=== PATIENT | male | born 1985 | race Hispanic/Latino ===

== ENCOUNTER 2017-05-07 12:43 | Inpatient (IN) | payer MEDICAID ==
[2017-05-07 12:48] VITALS: O2SAT 99
--- NOTE | 2017-05-07 13:24 | ED PDOC ---
HPI: Chest Pain Time Seen by Provider: 05/07/17 12:57 Chief Complaint (Nursing): Chest Pain Chief Complaint (Provider): Chest Pain History Per: Patient History/Exam Limitations: no limitations Onset/Duration Of Symptoms: Days (x 1.5 weeks) Current Symptoms Are (Timing): Still Present Additional Complaint(s): Eddi is a 32 y/o male with no past medical history, presenting to the ED complaining of chest pain for 1.5 weeks, which radiates to both arms. Has also been feeling anxious and depressed. Patient was admitted at hospital in [place], [place] for chest pain and diagnosed with depression and anxiety. Denies alcohol and drug use. Also denies suicidal and homicidal ideation. PMD: None Past Medical History Reviewed: Historical Data, Nursing Documentation, Vital Signs Vital Signs: Last Vital Signs Temp 97.7 F 05/07/17 12:45 Pulse 90 05/07/17 13:16 Resp 16 05/07/17 12:45 BP 126/76 05/07/17 12:45 Pulse Ox 99 05/07/17 13:58 - Medical History PMH: Anxiety, Depression - Family History Family History: States: Unknown Family Hx - Social History Current smoker - smoking cessation education provided: Yes Alcohol: None Drugs: Denies - Allergies Allergies/Adverse Reactions: Allergies Allergy/AdvReac Type Severity Reaction Status Date / Time No Known Allergies Allergy Verified 05/07/17 12:45 Review of Systems ROS Statement: Except As Marked, All Systems Reviewed And Found Negative Constitutional: Negative for: Fever, Chills Cardiovascular: Positive for: Chest Pain (radiating to both arms) Psych: Positive for: Anxiety, Depression. Negative for: Suicidal ideation (and homicidal) Physical Exam - Reviewed Nursing Documentation Reviewed: Yes Vital Signs Reviewed: Yes - Physical Exam Appears: Positive for: Non-toxic, No Acute Distress Head Exam: Positive for: ATRAUMATIC, NORMAL INSPECTION, NORMOCEPHALIC Skin: Positive for: Normal Color, Warm, Dry Eye Exam: Positive for: EOMI, Normal appearance, PERRL Neck: Positive for: Normal, Painless ROM, Supple Cardiovascular/Chest: Positive for: Regular Rate, Rhythm. Negative for: Murmur Respiratory: Positive for: Normal Breath Sounds. Negative for: Accessory Muscle Use, Respiratory Distress Back: Positive for: Normal Inspection. Negative for: Vertebral Tenderness Extremity: Positive for: Normal ROM. Negative for: Pedal Edema, Deformity Neurologic/Psych: Positive for: Alert, Oriented. Negative for: Motor/Sensory Deficits - Laboratory Results Result Diagrams: 05/07/17 13:36 05/07/17 13:36 - ECG O2 Sat by Pulse Oximetry: 99 (RA) Pulse Ox Interpretation: Normal Medical Decision Making Medical Decision Making: Time: 13:15 Initial Plan: --Troponin I --Urine drug screen --EKG --CXR 2 views --Pending reevaluation Time: 13:32 FINDINGS: LUNGS: No active pulmonary disease. PLEURA: No significant pleural effusion identified. No pneumothorax apparent. CARDIOVASCULAR: Normal. OSSEOUS STRUCTURES: No significant abnormalities. VISUALIZED UPPER ABDOMEN: Normal. OTHER FINDINGS: None. IMPRESSION: No active disease. Time: 13:41 --Added urine dipstick, CBC, CMP, and alcohol serum Time: 13:48 --Patient placed on 1:1 observation for suicide precaution --Will be admitted inpatient to Adult Psychiatry for depression, under the care of Dr. Brian Cope --Patient medically stable for psychiatric admission Scribe Attestation: Documented by Maxine Alas, acting as a scribe for Aly Storm MD Provider Scribe Attestation: All medical record entries made by the Scribe were at my direction and personally dictated by me. I have reviewed the chart and agree that the record accurately reflects my personal performance of the history, physical exam, medical decision making, and the department course for this patient. I have also personally directed, reviewed, and agree with the discharge instructions and disposition. Disposition - Clinical Impression Clinical Impression: Depression - Patient ED Disposition Is Patient to be Admitted: Yes - Disposition Disposition Time: 13:46 Condition: FAIR - Pt Status Changed To: Hospital Disposition Of: Inpatient - Admit Certification Admit to Inpatient:: After my assessment, the patient will require hospitalization for at least two midnights. This is because of the severity of symptoms shown, intensity of services needed, and/or the medical risk in this patient being treated as an outpatient. - POA Present On Arrival: None
--- NOTE | 2017-05-07 13:34 | RAD ---
HISTORY: Chest pain COMPARISON: No prior. TECHNIQUE: Chest PA and lateral FINDINGS: LUNGS: No active pulmonary disease. PLEURA: No significant pleural effusion identified. No pneumothorax apparent. CARDIOVASCULAR: Normal. OSSEOUS STRUCTURES: No significant abnormalities. VISUALIZED UPPER ABDOMEN: Normal. OTHER FINDINGS: None. IMPRESSION: No active disease.
[2017-05-07 14:09] LABS: BASO % 0.5 % (0.0-2.0); EOS % 0.1 % (0.0-4.0); HEMATOCRIT 48.7 % (35.0-51.0); LYMPH # 1.7 K/uL (1.0-4.3); LYMPH % 20.8 % (20.0-40.0); MEAN CELL VOLUME 89.4 fl (80.0-94.0); MEAN CORPUSCULAR HEMOGLOBIN 31.2 pg (27.0-31.0); MEAN CORPUSCULAR HGB CONC 34.9 g/dL (33.0-37.0); MEAN PLATELET VOLUME 8.1 fl (7.2-11.7); MONO # 0.4 K/uL (0.0-0.8); MONO % 5.3 % (0.0-10.0); NEUT # 6.1 K/uL (1.8-7.0); NEUT % 73.3 % (50.0-75.0); NRBC % 0.1 % (0.0-0.0); RED CELL DISTRIBUTION WIDTH 12.7 % (11.5-14.5); WHITE BLOOD COUNT 8.4 K/uL (4.8-10.8)
[2017-05-07 14:23] LABS: BLOOD UREA NITROGEN 12 mg/dl (9-20); GLUCOSE,RANDOM 115 mg/dL (75-110)
[2017-05-07 14:24] LABS: ALB/GLOB RATIO 1.7 (1.0-2.1); ALCOHOL SERUM < 10 mg/dl (0-10); ALKALINE PHOSPHATASE 76 U/L (38-126); ALT/SGPT 24 U/L (21-72); AST/SGOT 19 U/L (17-59); BILIRUBIN,TOTAL 1.1 mg/dl (0.2-1.3); CALCIUM 9.5 mg/dL (8.4-10.2); CARBON DIOXIDE 27 mmol/L (22-30); CHLORIDE 101 mmol/L (98-107); GFR AFRICAN-AMERICAN > 60; POTASSIUM 4.1 MMOL/L (3.6-5.0); SODIUM 141 mmol/l (132-148); TOTAL PROTEIN 7.7 G/DL (6.3-8.2)
[2017-05-07] MEDS ORDERED: DiphenhydrAMINE 50 mg/ml Inj IM PRN (16:51)
[2017-05-07] MEDS ORDERED: Magnesium Hydroxide Susp 30 ml UD PO PRN (16:51)
[2017-05-07] MEDS ORDERED: Alum-Mag Hydrox-Simethicone Susp (30 mL) PO PRN (16:51)
--- NOTE | 2017-05-07 18:25 | PCM.BM ---
<Joanne Levine - Last Filed: 05/07/17 18:28> Treatment Plan Problems - Problems identified on initial assessmt feelings of worthlessness Date Initiated: 05/07/17 Time Initiated: 18:30 Assessment reference: NA Status: Active Treatment assets and liabiliti Patient Assests: cooperative, educated, self-reliant, ADL independent, physically healthy, cognitively intact Patient Liabilities: financial problems, relationship conflicts - Milieu Protocol Maintain good personal hygiene: daily Encourage regular showers, daily Remind patient to perform daily oral care Conduct patient checks and document Observation sheet: Q15 minutes Maintain personal safety: every shift Educate patient to report safety concerns to staff, every shift Monitor environment for contraband/sharps Medication safety: Monitor for expected outcome, potential side effects: every shift, Assess barriers to learning: every shift, Assess readiness for medication education: every shift <Jerald Cote - Last Filed: 05/08/17 15:35> Family Contact Family contact: Patient agrees to contact Family contact name: Domenica Hoyt ([phone]) Family contacted how many times per week?: 2 ([employer] called pt's mother and left a message for return call. ) - Goals for Treatment Patient goals for treatment: Pt would like the pains in his chest to subside. Pt currently too disorganized to appropriately participate in treatment. Discharge/Continuing Care - Education Needs Education Needs: Patient Medication, Patient Anger Management skills, Patient Community resources, Patient Aftercare Safety Plan - Discharge Discharge Criteria: Tolerates medication w/o severe side effects, Free of Suicidal thoughts, Free of paranoid thoughts, Free of agitation, Normal sleep pattern, Reduction of target symptoms Discharge to:: Home, With Family - Treatment Team Participation Was Patient/Family/SO present at Treatment Team Meeting: Yes
--- NOTE | 2017-05-07 19:57 | CP.PCM.CON ---
History of Present Illness - History of Present Illness History of Present Illness: 32 yo male with no significant PMH was seen in the ER because of on and off chest pain since 3 weeks ago. Admitted feeling depress and anxious. Patient was recently admitted in [place], [place] with depression and anxiety and chest pain. Unsure if patient was released or signed out AMA Review of Systems - Review of Systems All systems: reviewed and no additional remarkable complaints except (aside from those mentioned above, 12 point system review were negative by me) Past Patient History - Tetanus Immunizations Tetanus Immunization: Unknown - Past Social History Smoking Status: Light Smoker < 10 Cigarettes Daily Alcohol: None Drugs: Denies - CARDIAC Hx Cardiac Disorders: No Hx Hypertension: No - PULMONARY Hx Respiratory Disorders: No Hx Tuberculosis: No - NEUROLOGICAL Hx Neurological Disorder: No HX Cerebrovascular Accident: No Hx Seizures: No - HEENT Hx HEENT Problems: No - RENAL Hx Chronic Kidney Disease: No - ENDOCRINE/METABOLIC Hx Endocrine Disorders: No - HEMATOLOGICAL/ONCOLOGICAL Hx Blood Disorders: No Hx Cancer: No Hx Human Immunodeficiency Virus (HIV): No - INTEGUMENTARY Hx Dermatological Problems: No - MUSCULOSKELETAL/RHEUMATOLOGICAL Hx Musculoskeletal Disorders: No - GASTROINTESTINAL Hx Gastrointestinal Disorders: No - GENITOURINARY/GYNECOLOGICAL Hx Genitourinary Disorders: No Hx Sexually Transmitted Disorders: No - PSYCHIATRIC Hx Emotional Abuse: No Hx Physical Abuse: No Hx Sexual Abuse: No Hx Substance Use: No - SURGICAL HISTORY Hx Abdominal Aortic Aneurysm Repair: No Hx Amputation: No Hx Angiogram: No Hx Angioplasty: No Hx Appendectomy: No Hx Arteriovenous Shunt: No Hx Arthroscopy: No Hx Bile Duct Stent: No Hx Breast Biopsy: No Hx Cataract Extraction: No Hx Cardiac Catheterization: No Hx Carotid Endarterectomy: No Hx Section: No Hx Cholecystectomy: No Hx Coronary Artery Bypass Graft: No Hx Coronary Stent: No Hx Dilation and Curettage: No Hx Eye Surgery: No Hx Femoral-Popliteal Bypass Graft: No Hx Gastric Bypass Surgery: No Hx Herniorrhaphy: No Hx Hysterectomy: No Hx Joint Replacement: No Hx Kidney Transplant: No Hx Liver Transplant: No Hx Mastectomy: No Hx Musculoskeletal Surgery: No Hx Open Heart Surgery: No Hx Open Reduction Internal Fixation: No Hx Orthopedic Surgery: No Hx Parathyroidectomy: No Hx Penile Implant: No Hx Pulmonary Surgery: No Hx Splenectomy: No Hx Thyroidectomy: No Hx Tonsillectomy: No Hx Tubal Ligation: No Hx Valve Replacement: No Hx Vascular Surgery: No Hx Vascular Access Device: No - ANESTHESIA Hx Anesthesia: No Meds Allergies/Adverse Reactions: Allergies Allergy/AdvReac Type Severity Reaction Status Date / Time No Known Allergies Allergy Verified 05/07/17 12:45 - Medications Medications: Current Medications Acetaminophen (Tylenol 325mg Tab) 650 mg PO Q4 PRN PRN Reason: Pain, Mild (1-3) Al Hydrox/Mg Hydrox/Simethicone (Maalox Plus 30 Ml) 30 ml PO Q4 PRN PRN Reason: Dyspepsia Diphenhydramine HCl (Benadryl) 50 mg IM Q6 PRN PRN Reason: Extrapyramidal S/S Unable PO Diphenhydramine HCl (Benadryl) 50 mg PO HS PRN PRN Reason: Insomnia Diphenhydramine HCl (Benadryl) 50 mg PO Q6 PRN PRN Reason: Dystonic Haloperidol (Haldol) 5 mg PO Q4 PRN PRN Reason: Agitation Haloperidol Lactate (Haldol) 5 mg IM Q4 PRN PRN Reason: Agitation, Unable to Take PO Ibuprofen (Motrin Tab) 600 mg PO Q6 PRN PRN Reason: pain Lorazepam (Ativan) 2 mg IM Q4 PRN PRN Reason: Anxiety/Agitation,Unable PO Lorazepam (Ativan) 2 mg PO Q4 PRN PRN Reason: Agitation Magnesium Hydroxide (Milk Of Magnesia) 30 ml PO HS PRN PRN Reason: Constipation Physical Exam - Constitutional Appears: No Acute Distress - Head Exam Head Exam: ATRAUMATIC - Eye Exam Eye Exam: absent: Scleral icterus - ENT Exam ENT Exam: Mucous Membranes Moist - Neck Exam Neck exam: Negative for: Meningismus - Respiratory Exam Respiratory Exam: absent: Rhonchi, Wheezes, Respiratory Distress - Cardiovascular Exam Cardiovascular Exam: REGULAR RHYTHM, +S1, +S2 - GI/Abdominal Exam GI & Abdominal Exam: Soft. absent: Tenderness - Rectal Exam Rectal Exam: Deferred - Neurological Exam Neurological exam: Alert, Oriented x3 - Psychiatric Exam Psychiatric exam: Normal Affect - Skin Skin Exam: Dry, Intact Results - Vital Signs Recent Vital Signs: Last Vital Signs Temp 98 F 05/07/17 15:33 Pulse 89 05/07/17 15:33 Resp 18 05/07/17 16:35 BP 120/78 09/14/17 15:33 Pulse Ox 99 05/07/17 15:33 - Labs Result Diagrams: 05/07/17 13:36 05/07/17 13:36 Assessment & Plan (1) Depression Status: Acute Comment: psyche is managing (2) Chest pain Status: Acute Comment: Troponin was negative. EKG : NSR without ischemic changes
[2017-05-08 08:30] LABS: T4 8.69 ug/dl (5.5-11.0)
[2017-05-08 08:44] LABS: THYROID STIMULATING HORMONE 2.44 mIU/ML (0.46-4.68)
--- NOTE | 2017-05-08 09:20 | CARD ---
APPROVED REPORT EKG Measurement Heart [id number] <Conclusion> Normal sinus rhythm Normal ECG
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
[2017-05-08] MEDS: Risperidone M tab 1 MG PO SCH (12:08)
[2017-05-09] MEDS: Risperidone M tab 1 MG PO SCH (09:01)
--- NOTE | 2017-05-09 13:02 | PCM.PYCHPN ---
Psychiatric Progress Note - Psychiatric Progress Note Patient seen today, length of contact: chart reviewed case discussed with team Patient Chief Complaint: feeling anxious down. staff reports pt is seen about unit, adherent with rx, eating meals, watching tv Problems Identified/Issues Discussed: alteration in mood alteration in self care Medical Problems: per chart Diagnostic Results: per psychiatry per medicine per nursing per social work DSM 5 Symptoms Update: alteration in mood alteration in self care Medication Change: No Medical Record Reviewed: Yes Consults ordered or reviewed: hospitalist Mental Status Examination - Cognitive Function Orientation: Person, Place, Situation, Time Attention: WNL Concentration: WNL Association: [facility] Fund of Knowledge: [facility] Decription of patient's judgement and insights: impaired - Mood Mood: Depressed, Anxious - Affect Affect: Blunted - Speech Speech: Soft - Formal Thought Process Formal Thought Process: Hallucinations (reports some auditory hallucinations- ex 's voice), Delusions (? special mission/that he may be a martyr because of his beliefs on [place]), Paranoia, Other (vague thoughts) - Homicidal Ideation Homicidal Ideation: No Goal/Treatment Plan - Goal/Treatment Plan Progress Toward Problem(s) and Goals/Treatment Plan: inpt milieu adjust meds per status pt followed by hospitalist vital signs and clinical observation per protocol and per status disposition planning in progress Estimated Date of D/C: 05/12/17 - Smoking Cessation Smoking Cessation Initiated: Yes
[2017-05-10] MEDS: Risperidone M tab 1 MG PO SCH (08:45)
--- NOTE | 2017-05-10 18:44 | PCM.PYCHPN ---
Psychiatric Progress Note - Psychiatric Progress Note Patient seen today, length of contact: chart reviewed case discussed with team Patient Chief Complaint: feeling less anxious staff reports pt is seen about unit, adherent with rx, eating meals, watching tv Problems Identified/Issues Discussed: alteration in mood alteration in self care Medical Problems: per chart Diagnostic Results: per psychiatry per medicine per nursing per social work DSM 5 Symptoms Update: alteration in mood Medication Change: Yes (decrease clonazpeam to 0.5mg am and 1mg po pm meal ) Medical Record Reviewed: Yes Consults ordered or reviewed: hospitalist Mental Status Examination - Cognitive Function Orientation: Person, Place, Situation, Time Attention: WNL Concentration: WNL Association: WNL Fund of Knowledge: [facility] Decription of patient's judgement and insights: impaired - Mood Mood: Depressed, Anxious - Affect Affect: Blunted - Speech Speech: Soft - Formal Thought Process Formal Thought Process: Paranoia, Other (vague thoughts) - Homicidal Ideation Homicidal Ideation: No Goal/Treatment Plan - Goal/Treatment Plan Progress Toward Problem(s) and Goals/Treatment Plan: inpt milieu adjust meds per status pt followed by hospitalist vital signs and clinical observation per protocol and per status will down taper clonazpam by 0.5mg to 0.5mg po am and 1mg po pmdinner disposition planning in progress Estimated Date of D/C: 05/12/17 - Smoking Cessation Smoking Cessation Initiated: No Reason for not providing: pt defers
[2017-05-11] MEDS: Risperidone M tab 1 MG PO SCH (09:11)
--- NOTE | 2017-05-11 09:37 | PCM.PYCHPN ---
Psychiatric Progress Note - Psychiatric Progress Note Patient seen today, length of contact: discussed with team Patient Chief Complaint: do you think you could arrange a way for me to get back home? Problems Identified/Issues Discussed: pt is pacing the halls today. he is smiling and appears to be internally preoccupied. he denies side effects with risperdal. he does state at times he has trouble with his balance. he states he feels less depressed. he denies intrusive thoughts, thoughts of being a martyr. he reports improved sleep and he denies any pain. Medical Problems: states he was referred to therapy in past. no prior medications Medication Change: Yes ( ) Medical Record Reviewed: Yes Mental Status Examination - Cognitive Function Orientation: Person, Place, Situation, Time Memory: Intact Attention: WNL Concentration: WNL Association: WNL Fund of Knowledge: [facility] Decription of patient's judgement and insights: fair i/j - Mood Mood: Neutral - Affect Affect: Blunted (odd) - Speech Speech: Soft - Formal Thought Process Formal Thought Process: Other (internally preoccupied, somewhat guarded) - Suicidal Ideation Suicidal Ideation: No Plan: denies any suicidal or homicidal thoughts - Homicidal Ideation Homicidal Ideation: No Goal/Treatment Plan - Goal/Treatment Plan Need for Continued Stay: Remain at risks for inpatient hospitalization, Severe functional impairment Progress Toward Problem(s) and Goals/Treatment Plan: psychosis will increase the risperdal to 1/0.5 decrease klonopin talk to collaterals and try to arrange aftercare Estimated Date of D/C: 05/12/17
[2017-05-11] MEDS ORDERED: Risperidone M tab 0.5MG PO SCH (22:00)
[2017-05-12] MEDS: Risperidone M tab 1 MG PO SCH (09:11)
--- NOTE | 2017-05-12 11:27 | PCM.PYCHPN ---
Psychiatric Progress Note - Psychiatric Progress Note Patient seen today, length of contact: discussed with team Patient Chief Complaint: how can i leave here? Problems Identified/Issues Discussed: pt pacing halls, laughing to self. pt talking about how "the other hospital changed my personality and i didn't like it" and then he reports "the doctor my mom took me to in [place] tried to change my personality the other direction." pt states that "you guys are changing my personality, but the way i want it to be...the me that listens to [place]i music...like how [place]i people speak with their tongues between there teeth and don't grind their teeth..in [place] they made me grind my teeth." pt denies side effects. reports blurry vision he was having prior to hospitalization has improved. Medical Problems: states he was referred to therapy in past. no prior medications Medication Change: Yes (increase risperdal) Medical Record Reviewed: Yes Mental Status Examination - Cognitive Function Orientation: Person, Place, Situation, Time Memory: Intact Attention: WNL Concentration: WNL Association: WNL Fund of Knowledge: [facility] Decription of patient's judgement and insights: fair i/j - Mood Mood: Neutral - Affect Affect: Blunted (odd) - Speech Speech: Soft - Formal Thought Process Formal Thought Process: Paranoia, Loosening of associations, Other (internally preoccupied, somewhat guarded) Psychotic Thoughts and Behaviors: disorganized/bizarre thoughts - Suicidal Ideation Suicidal Ideation: No - Homicidal Ideation Homicidal Ideation: No Goal/Treatment Plan - Goal/Treatment Plan Need for Continued Stay: Remain at risks for inpatient hospitalization, Severe functional impairment Progress Toward Problem(s) and Goals/Treatment Plan: psychosis will increase the risperdal to1mg biid continue to encourage participation in groups talk to collaterals and try to arrange aftercare Estimated Date of D/C: 05/12/17
[2017-05-12] MEDS ORDERED: Risperidone M tab 1 MG PO SCH (22:00)
--- NOTE | 2017-05-13 09:28 | PCM.PYCHPN ---
Psychiatric Progress Note - Psychiatric Progress Note Patient seen today, length of contact: discussed with team Patient Chief Complaint: i guess i was sleeping Problems Identified/Issues Discussed: pt pacing halls, laughing to self. refused pm meds per report. per sw who talked to mother, pt is not at his baseline. he remains psychotic and internally preoccupied. he is denying side effects with risperdal. agrees to keep taking the medication and to allow the dose to be titrated upwards. Medical Problems: states he was referred to therapy in past. no prior medications Medication Change: Yes (increase risperdal) Medical Record Reviewed: Yes Mental Status Examination - Cognitive Function Orientation: Person, Place, Situation, Time Memory: Intact Attention: WNL Concentration: WNL Association: WNL Fund of Knowledge: [facility] Decription of patient's judgement and insights: fair i/j - Mood Mood: Neutral - Affect Affect: Blunted (odd fixed affect) - Speech Speech: Soft - Formal Thought Process Formal Thought Process: Paranoia, Loosening of associations, Other (internally preoccupied, somewhat guarded) Psychotic Thoughts and Behaviors: disorganized/bizarre thoughts - Suicidal Ideation Suicidal Ideation: No - Homicidal Ideation Homicidal Ideation: No Goal/Treatment Plan - Goal/Treatment Plan Need for Continued Stay: Remain at risks for inpatient hospitalization, Severe functional impairment Progress Toward Problem(s) and Goals/Treatment Plan: schizophrenia will increase the risperdal to1.5 mg biid continue to encourage participation in groups will likely need to stay thru the weekend to adjust medications Estimated Date of D/C: 05/18/17
[2017-05-13] MEDS: Risperidone M tab 0.5MG PO SCH (09:38)
[2017-05-13] MEDS ORDERED: Risperidone M tab 0.5MG PO SCH (22:00)
[2017-05-14] MEDS: Risperidone M tab 0.5MG PO SCH (09:00)
--- NOTE | 2017-05-14 11:53 | PCM.PYCHPN ---
Psychiatric Progress Note - Psychiatric Progress Note Patient seen today, length of contact: discussed with team Patient Chief Complaint: i am fine Problems Identified/Issues Discussed: pt still is internally preoccupied. now is taking medications. no aggression. no side effects reported. Medical Problems: states he was referred to therapy in past. no prior medications Medication Change: Yes (increase risperdal) Medical Record Reviewed: Yes Mental Status Examination - Cognitive Function Orientation: Person, Place, Situation, Time Memory: Intact Attention: WNL Concentration: WNL Association: WNL Fund of Knowledge: WN Decription of patient's judgement and insights: fair i/j - Mood Mood: Neutral - Affect Affect: Blunted (odd fixed affect) - Speech Speech: Soft - Formal Thought Process Formal Thought Process: Paranoia, Loosening of associations, Other (internally preoccupied, somewhat guarded) Psychotic Thoughts and Behaviors: disorganized/bizarre thoughts - Suicidal Ideation Suicidal Ideation: No - Homicidal Ideation Homicidal Ideation: No Goal/Treatment Plan - Goal/Treatment Plan Need for Continued Stay: Remain at risks for inpatient hospitalization, Severe functional impairment Progress Toward Problem(s) and Goals/Treatment Plan: schizophrenia will increase the risperdal to 2 mg biid continue to encourage participation in groups will likely need to stay thru the weekend to adjust medications Estimated Date of D/C: 05/18/17
[2017-05-14] MEDS ORDERED: Risperidone M TAB 2 MG PO SCH (22:00)
[2017-05-15] MEDS: Risperidone M TAB 2 MG PO SCH (09:03)
--- NOTE | 2017-05-15 12:31 | PCM.PYCHPN ---
Psychiatric Progress Note - Psychiatric Progress Note Patient seen today, length of contact: in treatment team Patient Chief Complaint: i feel better Problems Identified/Issues Discussed: pt still is internally preoccupied and laughing to self. states he is less worried about [place], but still seems to have some bizarre delusional thoughts.agrees to increase in medications. no aggression. no side effects reported. Medical Problems: states he was referred to therapy in past. no prior medications Medication Change: Yes (increase risperdal) Medical Record Reviewed: Yes Mental Status Examination - Cognitive Function Orientation: Person, Place, Situation, Time Memory: Intact Attention: WNL Concentration: WNL Association: WNL Fund of Knowledge: [facility] Decription of patient's judgement and insights: fair i/j - Mood Mood: Neutral - Affect Affect: Blunted (odd fixed affect) - Speech Speech: Soft - Formal Thought Process Formal Thought Process: Paranoia, Loosening of associations, Other (internally preoccupied, somewhat guarded) Psychotic Thoughts and Behaviors: disorganized/bizarre thoughts - Suicidal Ideation Suicidal Ideation: No - Homicidal Ideation Homicidal Ideation: No Goal/Treatment Plan - Goal/Treatment Plan Need for Continued Stay: Remain at risks for inpatient hospitalization, Severe functional impairment Progress Toward Problem(s) and Goals/Treatment Plan: schizophrenia will increase the risperdal to 3mg bid and observe through the weekend continue to encourage participation in groups touch base with pt's mother to help assess appoach to baseline Estimated Date of D/C: 05/18/17
--- NOTE | 2017-05-15 12:47 | PCM.BM ---
Treatment Plan Problems - Problems identified on initial assessmt feelings of worthlessness Date Initiated: 05/07/17 Time Initiated: 18:30 Assessment reference: NA Status: Active Treatment assets and liabiliti Patient Assests: cooperative, educated, self-reliant, ADL independent, physically healthy, cognitively intact Patient Liabilities: financial problems, relationship conflicts - Milieu Protocol Maintain good personal hygiene: daily Encourage regular showers, daily Remind patient to perform daily oral care Conduct patient checks and document Observation sheet: Q15 minutes Maintain personal safety: every shift Educate patient to report safety concerns to staff, every shift Monitor environment for contraband/sharps Medication safety: Monitor for expected outcome, potential side effects: every shift, Assess barriers to learning: every shift, Assess readiness for medication education: every shift Milieu Narrative: schizophrenia will increase the risperdal to 3mg bid and observe through the weekend continue to encourage participation in groups touch base with pt's mother to help assess appoach to baseline Family Contact Family contact: Patient agrees to contact Family contact name: Domenica Hoyt ([phone]) Family contacted how many times per week?: 2 ([employer] called pt's mother and left a message for return call. ) - Goals for Treatment Patient goals for treatment: Pt would like the pains in his chest to subside. Pt currently too disorganized to appropriately participate in treatment. Discharge/Continuing Care - Education Needs Education Needs: Family Medication, Family Community resources, Family Aftercare Safety Plan, Patient Medication, Patient Anger Management skills, Patient Community resources, Patient Aftercare Safety Plan - Discharge Discharge Criteria: Tolerates medication w/o severe side effects, Free of Suicidal thoughts, Free of paranoid thoughts, Free of agitation, Normal sleep pattern, Reduction of target symptoms Discharge to:: Home, With Family - Treatment Team Participation Patient/Family/SO Statement: schizophrenia will increase the risperdal to 3mg bid and observe through the weekend continue to encourage participation in groups touch base with pt's mother to help assess appoach to baseline Discussed with Family/SO: Yes (Pt's mother has been updated consistently regarding pt's progress.) Was Patient/Family/SO present at Treatment Team Meeting: Yes Treatment Plan Review - Problem feelings of worthlessness Time Initiated: 18:30 - Discharge / Continuing Care Discharge to:: Home, With Family Behavioral Health Services: [facility]
[2017-05-15] MEDS: Risperidone M tab 1 MG PO SCH (21:02)
[2017-05-16] MEDS: Risperidone M TAB 2 MG PO SCH (09:13)
--- NOTE | 2017-05-16 10:36 | PCM.PYCHPN ---
Psychiatric Progress Note - Psychiatric Progress Note Patient seen today, length of contact: pt seen and evaluated Patient Chief Complaint: pt remains internally preoccupied with bizarre delusions and remains with poor insight and poor judgement and need further stabilization. Problems Identified/Issues Discussed: admitted for psychotic decompensation DSM 5 Symptoms Update: unspecified psychosis Medication Change: Yes (increase risperdal to 3 mg am and hs) Medical Record Reviewed: Yes Mental Status Examination - Cognitive Function Orientation: Person, Place, Situation, Time Memory: Intact Attention: WNL Concentration: WNL Association: WNL Fund of Knowledge: WNL - Mood Mood: Neutral - Affect Affect: Blunted (odd fixed affect) - Speech Speech: Soft - Formal Thought Process Formal Thought Process: Paranoia, Loosening of associations, Flight of ideas, Other (internally preoccupied, somewhat guarded) - Suicidal Ideation Suicidal Ideation: No - Homicidal Ideation Homicidal Ideation: No Goal/Treatment Plan - Goal/Treatment Plan Need for Continued Stay: Remain at risks for inpatient hospitalization, Severe functional impairment Progress Toward Problem(s) and Goals/Treatment Plan: will increase risperdal to 3mg am and hs to stabilize the pt and engage pt in therapy and groups. will monitor the pt for psychotic agiation. Estimated Date of D/C: 05/18/17
[2017-05-16] MEDS: Risperidone M tab 1 MG PO SCH (21:05)
[2017-05-17] MEDS: Risperidone M tab 1 MG PO SCH ×2 (08:54→21:08)
[2017-05-17 17:02] VITALS: RESP 18
--- NOTE | 2017-05-17 19:02 | PCM.PYCHPN ---
Psychiatric Progress Note - Psychiatric Progress Note Patient seen today, length of contact: pt seen and evaluated Patient Chief Complaint: pt remains internally preoccupied with bizarre delusions and remains with poor insight and poor judgement and need further stabilization. Problems Identified/Issues Discussed: admitted for psychotic decompensation Medication Change: Yes (increase risperdal to 3 mg am and hs) Medical Record Reviewed: Yes Mental Status Examination - Cognitive Function Orientation: Person, Place, Situation, Time Memory: Intact Attention: WNL Concentration: WNL Association: WNL Fund of Knowledge: WNL - Mood Mood: Neutral - Affect Affect: Blunted (odd fixed affect) - Speech Speech: Soft - Formal Thought Process Formal Thought Process: Paranoia, Loosening of associations, Flight of ideas, Other (internally preoccupied, somewhat guarded) - Suicidal Ideation Suicidal Ideation: No - Homicidal Ideation Homicidal Ideation: No Goal/Treatment Plan - Goal/Treatment Plan Need for Continued Stay: Remain at risks for inpatient hospitalization, Severe functional impairment Progress Toward Problem(s) and Goals/Treatment Plan: will continue risperdal to 3mg am and hs to stabilize the pt and engage pt in therapy and groups. will monitor the pt for psychotic agiation. Estimated Date of D/C: 05/18/17
[2017-05-18] MEDS: Risperidone M tab 1 MG PO SCH ×2 (09:05→21:05)
--- NOTE | 2017-05-18 09:53 | PCM.PYCHDC ---
Mental Status Examination - Mental Status Examination Orientation: Person, Place, Situation, Time Memory: Intact Mood: Neutral Affect: Blunted Speech: Appropriate Attention: WNL Association: WNL Fund of Knowledge: WNL Formal Thought Process: No Impairment Description of patient's judgement and insight: fair i/j Psychotic Thoughts and Behaviors: internally preoccupied. denies a/v hallucinations. not endorsing any delusional thinking Suicidal Ideation: No Current Homicidal Ideation?: No Plan: pt denies any suicidal or homicidal thoughts/plans or intent Discharge Summary - Discharge Note Reason for Hospitalization: pt presented with psychotic thoughts/bizarre behaviors and suicidal threats Psychiatric History (includes Medical, Family, Personal Hx): recently hosptitalized for psychosis. family hist of schizophrenia Consultations:: List each consultation separately and include: 1. Reason for request. 2. Findings. 3. Follow-up Consultations: seen by the hospitalist Summary of Hospital Course include:: 1. Description of specific treatment plan utilized for patients during their course of treatmen. 2. Summarize the time- course for resolution of acute symptoms and/or regressed behaviors. 3. Describe issues identified and worked on during hospitalization. 4. Describe medication utilized. 5. Describe medical problems identified and treated. 6. Reassessment of suicide risk Summary of Hospital Course: 32 yo male who is unemployed and living with his family in [facility]. the patient was recently hospitalized at a psychiatric facility for the first time in the last week or so, and states "i was discharged too early." he was started on tegretol, prolixin and benadryl. he states he was brought to the hospital in [place] because he drove from [place] to [place] to see his ex- who called the police when he would not leave. he states the police came and "i got loud with them" he is vague about this event. now he is stating he is in pain for 3 weeks in his chest. he states the pain has gotten worse. he was hoping that coming here would ease the pain. in the events leading up to this admission, the pt returned home from the hospital in [place] and continued to take his meds. his mother arranged an appointment with a psychiatrist in [place]. the pt states he went to the appointment but felt the doctor was talking to fast. he left the appointment with the thought that he needed to get out of [place] and then his pain would go away. he walked to the [facility] and stated he hitch hiked and was given a ride to [place] where he was dropped off at a gas station. he stated at that time he called 911 and was brought here. the patient is a vague historian who is not able to provide details about events. he is unable to discuss his marriage, but states he was only with his for 2 weeks. he has not worked in a year because "i didn't get along with my co-workers" he seems to have some paranoid thoughts. he is denying any suicide attempts. he reports he has been researching people who have been sacrificed because of the position they were in. he thinks he may be similar to these people- he names nick bui and linda wood. he then starts to talk about how he has strong beliefs on [facility] that may be placing him at risk, but he cannot clearly relate why. the patient state he feels safe in the hospital. he thinks his pain is worse because he did not take his medicine today. the patient does state he has hear his wifes voice in the past when she wasn't there. he seems to indicate he may have had other auditory hallucinations. he appears to be internally preoccupied. hospital course pt was admitted to [facility] and oriented to the unit. pt was placed on routine safety protocols. pt was started on risperdal and klonoping. his psychotic symptoms improved. he was no longer c/o chest pain or having any suicidal thoughts. he was attending groups. he was denying any medication side effects. at the time of discharge he was denying any suicidal or homicidal thoughts/ plans or intent. family was supportive. pt was agreeing to follow up with outpt. treatment back in [place] where he lived with his family. - Final Diagnosis (DSM 5) Condition upon Discharge: FAIR DSM 5: schizophrenia Disposition: HOME/ ROUTINE Follow-up Treatment Plan: follow up with aftercare as directed take medications as prescribed do not use alcohol, tobacco or other illicit substances call 911 if any suicidal or homicidal thoughts consider talking to providers about risperdal consta or invega sustenna Prescriptions/Medication Reconciliation: clonazePAM [clonAZEPAM] 0.5 mg PO BID #60 tab Risperidone [Risperdal] 3 mg PO BID #60 tablet - Smoking Cessation Smoking Cessation Medication prescribed: No Reason for not providing: declines - Antipsychotic Medications Pt discharged on 2 or more routine antipsychotic medications: No
[2017-05-19] MEDS: Risperidone M tab 1 MG PO SCH ×2 (08:58→21:05)
--- NOTE | 2017-05-19 09:47 | PCM.PYCHPN ---
Psychiatric Progress Note - Psychiatric Progress Note Patient seen today, length of contact: pt seen and evaluated Patient Chief Complaint: i am ready to go Problems Identified/Issues Discussed: pt to be discharged today pending appointment. see discharge summary for details. no overnight events. no c/o medication side effects. Medical Problems: states he was referred to therapy in past. no prior medications Medication Change: No ( ) Medical Record Reviewed: Yes Mental Status Examination - Cognitive Function Orientation: Person, Place, Situation, Time Memory: Intact Attention: WNL Association: [facility] Fund of Knowledge: [facility] Decription of patient's judgement and insights: fair i/j - Mood Mood: Neutral - Affect Affect: Blunted - Speech Speech: Appropriate - Formal Thought Process Formal Thought Process: No Impairment Psychotic Thoughts and Behaviors: internally preoccupied. denies a/v hallucinations. not endorsing any delusional thinking - Suicidal Ideation Suicidal Ideation: No - Homicidal Ideation Homicidal Ideation: No Goal/Treatment Plan - Goal/Treatment Plan Need for Continued Stay: Remain at risks for inpatient hospitalization, Severe functional impairment Progress Toward Problem(s) and Goals/Treatment Plan: follow up with aftercare as directed take medications as prescribed do not use alcohol, tobacco or other illicit substances call 911 if any suicidal or homicidal thoughts consider talking to providers about valeria sanchez or lee rasmussen Estimated Date of D/C: 05/18/17
[2017-05-20 09:05] VITALS: BP 120/78; PULSE 85; TEMP 96.1
[2017-05-20] MEDS: Risperidone M tab 1 MG PO SCH (09:06)
--- NOTE | 2017-05-20 09:51 | PCM.PYCHDC ---
Mental Status Examination - Mental Status Examination Orientation: Person, Place, Situation, Time Memory: Intact Mood: Neutral Affect: Constricted Speech: Appropriate Attention: WNL Concentration: WNL Association: WNL Fund of Knowledge: WNL Formal Thought Process: No Impairment Description of patient's judgement and insight: fair i/j Psychotic Thoughts and Behaviors: internally preoccupied. denies a/v hallucinations. not endorsing any delusional thinking Suicidal Ideation: No Current Homicidal Ideation?: No Plan: pt denies any suicidal or homicidal thoughts Discharge Summary - Discharge Note Reason for Hospitalization: pt presented with psychotic thoughts/bizarre behaviors and suicidal threats Psychiatric History (includes Medical, Family, Personal Hx): recently hosptitalized for psychosis. family hist of schizophrenia Consultations:: List each consultation separately and include: 1. Reason for request. 2. Findings. 3. Follow-up Consultations: seen by the hospitalist Summary of Hospital Course include:: 1. Description of specific treatment plan utilized for patients during their course of treatmen. 2. Summarize the time- course for resolution of acute symptoms and/or regressed behaviors. 3. Describe issues identified and worked on during hospitalization. 4. Describe medication utilized. 5. Describe medical problems identified and treated. 6. Reassessment of suicide risk Summary of Hospital Course: 32 yo male who is unemployed and living with his family in [facility]. the patient was recently hospitalized at a psychiatric facility for the first time in the last week or so, and states "i was discharged too early." he was started on tegretol, prolixin and benadryl. he states he was brought to the hospital in [place] because he drove from [place] to [place] to see his ex- who called the police when he would not leave. he states the police came and "i got loud with them" he is vague about this event. now he is stating he is in pain for 3 weeks in his chest. he states the pain has gotten worse. he was hoping that coming here would ease the pain. in the events leading up to this admission, the pt returned home from the hospital in [place] and continued to take his meds. his mother arranged an appointment with a psychiatrist in [place]. the pt states he went to the appointment but felt the doctor was talking to fast. he left the appointment with the thought that he needed to get out of [place] and then his pain would go away. he walked to the [facility] and stated he hitch hiked and was given a ride to [place] where he was dropped off at a gas station. he stated at that time he called 911 and was brought here. the patient is a vague historian who is not able to provide details about events. he is unable to discuss his marriage, but states he was only with his for 2 weeks. he has not worked in a year because "i didn't get along with my co-workers" he seems to have some paranoid thoughts. he is denying any suicide attempts. he reports he has been researching people who have been sacrificed because of the position they were in. he thinks he may be similar to these people- he names nick bui and linda wood. he then starts to talk about how he has strong beliefs on [facility] that may be placing him at risk, but he cannot clearly relate why. the patient state he feels safe in the hospital. he thinks his pain is worse because he did not take his medicine today. the patient does state he has hear his wifes voice in the past when she wasn't there. he seems to indicate he may have had other auditory hallucinations. he appears to be internally preoccupied. hospital course pt was admitted to [facility] and oriented to the unit. pt was placed on routine safety protocols. pt was started on risperdal and klonoping. his psychotic symptoms improved. he was no longer c/o chest pain or having any suicidal thoughts. he was attending groups. he was denying any medication side effects. at the time of discharge he was denying any suicidal or homicidal thoughts/ plans or intent. family was supportive. pt was agreeing to follow up with outpt. treatment back in [place] where he lived with his family. pt's discharge was delayed as team was trying to find aftercare and transportation for the patient. - Final Diagnosis (DSM 5) Condition upon Discharge: FAIR DSM 5: schizophrenia Disposition: HOME/ ROUTINE Follow-up Treatment Plan: follow up with aftercare as directed take medications as prescribed do not use alcohol, tobacco or other illicit substances call 911 if any suicidal or homicidal thoughts consider talking to providers about risperdal consta or invega sustenna Prescriptions/Medication Reconciliation: clonazePAM [clonAZEPAM] 0.5 mg PO BID #60 tab Risperidone [Risperdal] 3 mg PO BID #60 tablet - Smoking Cessation Smoking Cessation Medication prescribed: No - Antipsychotic Medications Pt discharged on 2 or more routine antipsychotic medications: No
== END 2017-05-20 12:45 | disposition home or self-care (01) | DRG 430 ==
LOC: H.ER 12:43 → H.ERHOLD 13:47 → H.PSYCH 16:00
PROVIDERS: ADMIT Psychiatry & Neurology Psychiatry; ATTEND Psychiatry & Neurology Psychiatry
PROC: GZHZZZZ Group Psychotherapy (ICD-10-PCS; principal; 2017-05-07)
PROC: GZ58ZZZ Individual Psychotherapy, Cognitive-Behavioral (ICD-10-PCS; 2017-05-07)
DX: F20.9 Schizophrenia, unspecified (principal); R45.851 Suicidal ideations; F32.9 Major depressive disorder, single episode, unspecified; F41.9 Anxiety disorder, unspecified; F17.210 Nicotine dependence, cigarettes, uncomplicated